=== PATIENT | female | born 1945 | race Two or more races ===

== ENCOUNTER 2017-08-30 15:27 | Emergency (ER) | payer OTHER ==
[~2017-08-30] VITALS: Ht 149.9 cm; Wt 49.4 kg
[2017-08-30] MEDS ORDERED: AMLODIPINE BES2.5 MG (15:50)
[2017-08-30] MEDS ORDERED: ELIQUIS5 MG (15:50)
[2017-08-30] MEDS ORDERED: TOPROL XL100 M1 (15:51)
[2017-08-30] MEDS ORDERED: LOSARTAN-HCTZ1 EAC2 (15:51)
[2017-08-30] MEDS ORDERED: ATORVASTATIN CA10 MG PO (15:52)
== END 2017-08-30 17:02 | disposition home or self-care (01) ==
LOC: ER 15:27
DX: J06.9 Acute upper respiratory infection, unspecified (principal); J11.1 Influenza due to unidentified influenza virus with other respiratory manifestations

== ENCOUNTER 2018-02-02 08:46 | Outpatient (CLI) | payer OTHER ==
[~2018-02-02 08:46] MED LIST: AMLODIPINE BES2.5 MG; ATORVASTATIN CA10 MG PO; ELIQUIS5 MG; LOSARTAN-HCTZ1 EAC2; TOPROL XL100 M1
== END 2018-02-02 08:57 | disposition home or self-care (01) ==
LOC: LAB 08:46
DX: D64.89 Other specified anemias (principal); N39.0 Urinary tract infection, site not specified; R10.84 Generalized abdominal pain; E03.8 Other specified hypothyroidism; E78.4 Other hyperlipidemia; R80.8 Other proteinuria; E11.9 Type 2 diabetes mellitus without complications; R73.09 Other abnormal glucose; E78.2 Mixed hyperlipidemia; I11.9 Hypertensive heart disease without heart failure; I48.0 Paroxysmal atrial fibrillation; R73.02 Impaired glucose tolerance (oral)

== ENCOUNTER 2018-06-13 08:49 | Emergency (ER) | payer OTHER ==
[~2018-06-13] VITALS: Ht 149.9 cm; Wt 49.0 kg
[2018-06-13] MEDS ORDERED: FLECAINIDE ACET50 MG (09:07)
[2018-06-13] MEDS ORDERED: BACTRIM DS TAB1 EACH PO (10:57)
== END 2018-06-13 11:02 | disposition home or self-care (01) ==
LOC: ER 08:49
DX: N39.0 Urinary tract infection, site not specified (principal); R31.0 Gross hematuria

== ENCOUNTER → 2021-02-25 | Outpatient (CLI) | payer OTHER ==
[~2021-02-25] MED LIST changes: +BACTRIM DS TAB1 EACH PO; +FLECAINIDE ACET50 MG
== END | disposition home or self-care (01) ==
LOC: SONOGRAMA 08:54
PROVIDERS: ATTEND Internal Medicine
DX: E04.1 Nontoxic single thyroid nodule (principal)

== ENCOUNTER 2021-05-13 08:00 | Outpatient (CLI) | payer OTHER | END 2021-05-13 08:30 | disposition home or self-care (01) | LOC: PPH VACUNA 08:00 | PROVIDERS: ATTEND Emergency Medicine Pediatric Emergency Medicine | DX: Z23 Encounter for immunization (principal) ==

== ENCOUNTER 2023-11-30 12:49 | Outpatient (CLI) | payer OTHER ==
[~2023-11-30 12:49] MED LIST changes: +AMLODIPINE BES2.5 MG PO; +ATORVASTATIN CA20 MG; +ELIQUIS2.5 MG PO; +ELIQUIS5 MG PO; +LOSARTAN-HCTZ1 EAC1 PO; +PANTOPRAZOLE SO40 MG PO; +TOPROL XL100 M1 PO; +VALSARTAN320 MG
== END 2023-11-30 12:51 | disposition home or self-care (01) ==
LOC: NUCLEAR 12:49
PROVIDERS: ATTEND Internal Medicine
DX: Z13.820 Encounter for screening for osteoporosis (principal); M81.0 Age-related osteoporosis without current pathological fracture

== ENCOUNTER 2023-12-02 09:27 | Outpatient (CLI) | payer OTHER | END 2023-12-02 09:50 | disposition home or self-care (01) | LOC: MAMO-SONO 09:27 | PROVIDERS: ATTEND Internal Medicine | DX: N60.19 Diffuse cystic mastopathy of unspecified breast (principal); R25.1 Tremor, unspecified; Z12.31 Encounter for screening mammogram for malignant neoplasm of breast | CPT/HCPCS: 70551 ==

== ENCOUNTER 2024-01-28 08:20 | Outpatient (CLI) | payer OTHER | END 2024-01-28 08:30 | disposition home or self-care (01) | LOC: TOM 08:20 | PROVIDERS: ATTEND Specialist | DX: R10.9 Unspecified abdominal pain (principal); I48.91 Unspecified atrial fibrillation | CPT/HCPCS: 74177; Q9965 ==

== ENCOUNTER 2024-06-17 05:19 | Emergency (ER) | payer OTHER ==
[~2024-06-17] VITALS: Ht 149.9 cm; Wt 42.6 kg
[2024-06-17 10:26] LABS: HEMATOCRIT 38.5 % (36.0-45.00); HEMOGLOBIN 12.9 g/dL (12.0-15.00); MEAN CORPUSCULAR HEMOGLOBIN 30.2 pg (27.00-32.0); MEAN CORPUSCULAR HGB CONC 33.6 g/dl (32.0-36.0); PLATELET COUNT 249 K/uL (150-450); RED BLOOD COUNT 4.28 M/uL (4.00-6.00)
[2024-06-17 10:38] LABS: INR 1.05; PARTIAL THROMBOPLASTIN TIME 28.5 SECONDS (22.0-34.0); PROTHROMBIN TIME 11.4 SECONDS (9.0-11.5)
[2024-06-17 10:40] LABS: CALCIUM 9.2 mg/dL (8.5-10.1); CREATININE SERUM 0.8 mg/dL (0.55-1.02); GFR 69.01; POTASSIUM 3.76 mEq/L (3.5-5.1)
== END 2024-06-17 14:49 | disposition home or self-care (01) ==
LOC: ER 05:19
PROVIDERS: Emergency Medicine
DX: R07.9 Chest pain, unspecified (principal); Z88.6 Allergy status to analgesic agent; I49.8 Other specified cardiac arrhythmias; I10 Essential (primary) hypertension; Z20.822 Contact with and (suspected) exposure to COVID-19

== ENCOUNTER 2024-09-14 13:25 | Outpatient (CLI) | payer OTHER | END 2024-09-14 13:32 | disposition home or self-care (01) | LOC: SONOGRAMA 13:25 | PROVIDERS: ATTEND Internal Medicine | DX: M25.511 Pain in right shoulder (principal) ==